=== PATIENT | female | born 1990 | race Caucasian/White ===

== ENCOUNTER 2024-02-06 11:15 | Outpatient (AMB) | payer OTHER, SELFPAY ==
[2024-02-06 11:27] VITALS: BP 112/60; PULSE 80; O2SAT 95; BMI 41.7
--- NOTE | 2024-02-06 11:27 | A.OFFPC_ITS ---
Vital Signs 02/06/24 11:27 Height 5 ft 7 in Weight 266 lb BMI 41.7 BP 112/60 Blood Pressure Location Lt brachial Position Sitting Pulse 80 Pulse Source Pulse Oximeter Pulse Oximetry (%) 95 Oxygen Delivery Method Room Air Intake Visit Reasons: Back Pain Consumer Product Advisor: Not Required per policy Accompanied by: Self / Same As Patient Allergies No Known Allergies [No Known Allergies*] Allergy (Verified 02/06/24 12:01) Medication List - Last Reconciled 02/06/24 by Ronnie Byers MD albuterol sulfate 90 mcg/actuation 2 puffs inhalation Q6H PRN 30 days ibuprofen 600 mg PO Q6H PRN 30 days loratadine 10 mg PO DAILY PRN methocarbamol 500 mg PO TID PRN 10 days tramadol 50 mg PO TID PRN 10 days Tobacco use date assessed: 02/06/24 Dental Screening Dental Screen Date: 02/06/24 Did you have a dental visit in the last 12 months?: No Did you have a dental problem in the last 6 months where you did not have access to dental care?: No Was dental information given to patient?: Patient has dentist HPI Back Pain HPI Details Patient comes in today for her follow up visit - was last seen here in July 2021 (via telehealth); was last here in-person in October 2020 Patient states that she has been experiencing increased allergy symptoms lately She has been taking OTC Benadryl or Claritin recently with some relief of her symptoms States that her current job requires her to go up and down stairs throughout the day and this is aggravating her low back pain Needs several of her Rx refilled, including her Tramadol She denies any fever or sore throat; denies any headaches or dizziness Denies any chest pain, no shortness of breath - states that her asthma has been well controlled lately No nausea /vomiting, no abdominal pain No change in bowel habits noted Adds that she has some itchy Athlete foot lesions/rash on both feet and is looking for some Rx to help clear these up [facility] Medical History (Updated 02/09/24 @ 03:39 by Ronnie Byers MD) Morbid obesity with BMI of 40.0-44.9, adult Obesity (BMI 30-39.9) Protrusion of intervertebral disc of lumbosacral region Lumbar spondylosis Congenital blindness Allergic rhinitis Asthma Surgical History H/O cardiac radiofrequency ablation Family History Father No problems noted. Mother Diabetes Social History Housing: Apartment Alcohol intake: current Alcohol intake frequency: holidays/special occasions only Patient Tobacco Use Status: Former Tobacco user Second Hand Smoke Exposure: Yes service: No Current occupational status: employed Questionnaire PHQ-9 Over the last 2 weeks, how often have you been bothered by any of the following problems? 1. Little interest or pleasure in doing things: not at all 2. Feeling down, depressed, or hopeless: not at all 3. Trouble falling or staying asleep, or sleeping too much: not at all 4. Feeling tired or having little energy: not at all 5. Poor appetite or overeating: not at all 6. Feeling bad about yourself - or that you are a failure or have let yourself or your family down: not at all 7. Trouble concentrating on things, such as reading the newspaper or watching television: not at all 8. Moving or speaking so slowly that other people could have noticed. Or the opposite - being so fidgety or restless that you have been moving around a lot more than usual: not at all 9. Thoughts that you would be better off or of hurting yourself in some way: not at all Total score: 0 Depression Screening Interpretation: Negative Depression Screening Done: Yes 17436 - PHQ-9 Billing: Yes Source: Developed by Drs. Boyd Gray, Shonna Chen, Corky Hyde and colleagues, with an educational nawaf from [employer]. Thrive Questionnaire Date Thrive assessed: 02/06/24 I am a: Patient What is your living situation today?: I have a steady place to live Within the past 12 months, did the food you bought not last and you didn't have the money to get more?: Never true Within the past 12 months, did you worry whether your food would run out before you got money to buy more?: Never true Do you have trouble paying for medicines?: No Do you have trouble getting transportation to medical appointments?: No Do you have trouble paying your heating and electricity bill?: No Do you have trouble taking care of your child, family member or friend?: No Do you have trouble with day-to-day activities such as bathing, preparing meals, shopping, managing finances, etc.?: No Are you currently unemployed and looking for a job?: No Are you interested in more education?: No Please select the resources that you would like help with: None Currently or been in a relationship where the following occur: No concerns reported THRIVE Score: 0 AUDIT C Alcohol Use Questionnaire (AUDIT-C) 1. How often do you have a drink containing alcohol?: Monthly or less 2. How many drinks containing alcohol do you have on a typical day when you are drinking?: 1 or 2 3. How often do you have six or more drinks on one occasion?: Never Total Score: 1 Score Reviewed/Action Taken: Yes LAMBERT-7 AMB Questionnaire LAMBERT-7 Date LAMBERT - 7 assessed: 02/06/24 Feeling nervous, anxious, or on edge: 3 = Nearly every day Not being able to stop or control worryin = Nearly every day Worrying too much about different things: 3 = Nearly every day Trouble relaxin = Several days Being so restless that it is hard to sit still: 3 = Nearly every day Becoming easily annoyed or irritable: 3 = Nearly every day Feeling afraid as if something awful might happen: 0 = Not at all Total LAMBERT-7 score (0-4 normal; 5-9 mild; 10-14 moderate; 15-21 severe): 16 Source: Developed by Drs. Boyd Gray, Shonna Chen, Corky Hyde and colleagues, with an educational nawaf from [employer]. Review of Systems Const Denies chills, Denies fatigue, Denies fever(s) and Denies headache(s) ENT Denies dysphagia, Denies dizziness, Denies otalgia, Denies headache(s), Denies neck pain, Denies odynophagia and Denies sore throat Card Denies chest pain, Denies palpitations and Denies dyspnea Resp Denies cough, Denies dyspnea and Denies wheezing GI Denies abdominal pain, Denies constipation, Denies dysphagia, Denies heartburn, Denies diarrhea, Denies nausea, Denies odynophagia and Denies vomiting Denies nocturia, Denies dysuria and Denies urinary urgency Musc Reports back pain (over the lumbar spine - chronic), Denies arthralgias and Denies neck pain Skin/Breast Reports rash (itchy rash in-between some toes on both feet) Neuro Denies dizziness and Denies headache(s) Endo Denies fatigue and Denies palpitations Aller/Immun Denies wheezing Physical exam (Primary Care) Vital Signs: Last Vital Signs Pulse 80 02/06/24 11:27 BP 112/60 02/06/24 11:27 Pulse Ox 95 02/06/24 11:27 Oxygen Delivery Method Room Air 02/06/24 11:27 BMI result Body Mass Index 41.7 Tobacco/Smoking Status: Tobacco use Status Tobacco use date assessed 02/06/24 02/06/24 11:28 Patient Tobacco Use Status Former Tobacco user 02/06/24 11:28 PHQ-9: PHQ-9 Score PHQ-9: Total score 0 02/08/24 04:06 Depression Screening Interpretation: Negative Thrive Assessment: Date of Thrive Assessment Date Thrive assessed 02/06/24 02/06/24 11:28 Currently or been in a relationship where the following occur: No concerns reported Const General: no acute distress and alert HENMT Ears: TM's normal bilaterally and EAC's normal Throat: Yes posterior oropharynx normal and Yes tonsils normal (no TP congestion) Neck Neck: Yes no lymphadenopathy and Yes supple Thyroid: Thyroid normal Resp Auscultation: clear to auscultation bilaterally, no rales and no wheezes Cardio Rate: regular rate Rhythm: regular rhythm Heart sounds: no murmurs GI Palpation (GI): Soft to palpation and nontender Auscultation: normal bowel sounds General: Yes no CVA tenderness Back/Spine/Pelvis Back: no CVA tenderness Thoracic/Lumbar Spine: lumbar spinal tenderness Skin Other: (+) mild erythematous, pruritic rash in between a few toes on both feet Extrem General: Yes no clubbing, cyanosis or edema Assessment and Plan Assessment & Plan (1) Asthma: Code(s): J45.909 - Unspecified asthma, uncomplicated Qualifiers: Asthma severity: mild Asthma persistence: intermittent Asthma complication type: uncomplicated Qualified Code(s): J45.20 - Mild intermittent asthma, uncomplicated Plan: Controlled Continue Albuterol HFA 2 inhalations every 6 hours as needed (2) Lumbar spondylosis: Code(s): M47.816 - Spondylosis without myelopathy or radiculopathy, lumbar region Plan: MRI of the lumbar spine done on 08/13/2016 revealed (+) left paracentral disc protrusion at L5-S1 with mild posterior displacement of the traversing left S1 nerve root; facet arthropathy and mild left foraminal narrowing and milder spondylitic changes at L3-L4 and L4-L5 Reinforced activity and weight-lifting restrictions Continue Ibuprofen 600 mg Q 6 hours PRN, Methocarbamol 500 mg TID PRN and Tramadol 50 mg TID PRN - Rx refilled (3) Allergic rhinitis: Code(s): J30.9 - Allergic rhinitis, unspecified Qualifiers: Allergic rhinitis trigger: unspecified Allergic rhinitis seasonality: unspecified Qualified Code(s): J30.9 - Allergic rhinitis, unspecified Plan: Continue Loratadine 10 mg QD PRN (4) Tinea pedis: Code(s): B35.3 - Tinea pedis Qualifiers: Laterality: bilateral Qualified Code(s): B35.3 - Tinea pedis Plan: Will start her on Miconazole nitrate 2% spray BID (5) Morbid obesity with BMI of 40.0-44.9, adult: Code(s): E66.01 - Morbid (severe) obesity due to excess calories; Z68.41 - Body mass index [BMI] 40.0-44.9, adult Plan: Reinforced diet/exercise as tolerated/lose weight Plan To return in 4 months for her annual physical examination Patient is advised to get her labs done before she returns in 4 months Orders: Orders Comprehensive [place]. Panel Fast 4 Months E78.00 - Pure hypercholesterolemia, unspecified, Z00.00 - Encounter for general adult medical examination without abnormal findings Vitamin D 25-OH Total 4 Months E55.9 - Vitamin D deficiency, unspecified, Z00.00 - Encounter for general adult medical examination without abnormal findings Complete Blood Count Auto Diff 4 Months D64.9 - Anemia, unspecified, Z00.00 - Encounter for general adult medical examination without abnormal findings Lipid Panel 4 Months E78.00 - Pure hypercholesterolemia, unspecified, Z00.00 - Encounter for general adult medical examination without abnormal findings TSH reflex Free T4 4 Months E78.00 - Pure hypercholesterolemia, unspecified, Z00.00 - Encounter for general adult medical examination without abnormal findings UA CC w/rflx Micro + Cult 4 Months R30.0 - Dysuria, Z00.00 - Encounter for general adult medical examination without abnormal findings Medications: New miconazole nitrate 2% 1 spray topical BID 133 grams 2RF Refilled tramadol 50 mg PO TID 10 days PRN 30 tabs 0RF pain methocarbamol 500 mg PO TID 10 days PRN 30 tabs 2RF muscle spasms Coding Level of Care Code Est Pt Level 4 (63787) Diagnoses Mild intermittent asthma without complication J45.20 Asthma severity: mild Asthma persistence: intermittent Asthma complication type: uncomplicated Lumbar spondylosis M47.816 Allergic rhinitis, unspecified seasonality, unspecified trigger J30.9 Allergic rhinitis trigger: unspecified Allergic rhinitis seasonality: unspecified Tinea pedis of both feet B35.3 Laterality: bilateral Morbid obesity with BMI of 40.0-44.9, adult E66.01; Z68.41
== END 2024-02-06 12:12 | disposition home or self-care (01) ==
PROVIDERS: PCP Internal Medicine; Visit Provider Internal Medicine
DX: J45.20 Mild intermittent asthma, uncomplicated (principal); E66.01 Morbid (severe) obesity due to excess calories; Z68.41 Body mass index [BMI] 40.0-44.9, adult; M47.816 Spondylosis without myelopathy or radiculopathy, lumbar region; J30.9 Allergic rhinitis, unspecified; B35.3 Tinea pedis
CPT/HCPCS: 99214

== ENCOUNTER 2024-11-01 06:49 | Emergency (ER) | payer OTHER, SELFPAY ==
[2024-11-01 06:53] VITALS: BP 111/63; PULSE 81; RESP 19; TEMP 36.6; O2SAT 98; BMI 42.3
--- OUTSIDE RECORDS SUMMARY | 2024-11-01 08:05 | XMS_ITS | Clinical Summary ---
Author Organization [facility] Address [address] [place] [address] Phone Care Team Providers Care Wood Patternmaker Name Role Phone Ronnie Byers MD Primary Care Provider [phone] Allergies No known active allergies Social History Tobacco Use Types Packs/Day Years Used Date Smoking Tobacco: Never Assessed Comments Unknown Sex and Gender Information Value Date Recorded Sex Assigned at Not on file Legal Sex Female 12:19 AM EST Gender Identity Not on file Sexual Orientation Not on file Last Filed Vital Signs Vital Sign Reading Time Taken Comments Blood Pressure 134/94 06/15/2024 1:41 PM EST Pulse 95 06/15/2024 1:41 PM EST Temperature 37.1 ??C (98.8 ??F) 06/15/2024 1:41 PM ES T Respiratory Rate 18 06/15/2024 1:41 PM EST Oxygen Saturation 96% 06/15/2024 1:41 PM EST Inhaled Oxygen Concentration - - Weight 122 kg (270 lb) 06/15/2024 1:41 PM EST Height 170.2 cm (5' 7 ) 06/15/2024 1:41 PM EST Body Mass Index 42.29 06/15/2024 1:41 PM EST Plan of Treatment Health Maintenance Due Date Last Done Comments DTaP,Tdap,and Td Vaccines (1 - Tdap) 2007 Pneumococcal Vaccine: Pediat rics (0 to 5 Years) and At-Risk Patients (6 to 64 Years) (1 of 2 - PCV) 2007 Cervical Cancer Screening: P ap Smear 2009 Depression Screening 06/06/2022 HIV Screening 06/06/2022 Hepatitis C Screening 06/06/2022 Social Influencers of Health Screening 06/06/2022 Hepatitis B Vaccines (2 of 3 - 19+ 3-dose series) 07/16/2022 06/18/2022 COVID-19 Vaccine (1 - 2023-2 5 season) 2024 Influenza Vaccine (Season Ended) 2025 06/02/20 18 HIB Vaccines Aged Out No longer eligi ble based on patient's age to complete this topic HPV Vaccines Aged Out No longer eligi ble based on patient's age to complete this topic Hepatitis A Vaccines Aged Out No long er eligible based on patient's age to complete this topic IPV Vaccines Aged Out No longer eligi ble based on patient's age to complete this topic MMR Vaccines Aged Out No longer eligi ble based on patient's age to complete this topic Meningococcal ACWY Vaccine Aged Out N o longer eligible based on patient's age to complete this topic Meningococcal B Vaccine Aged Out No l onger eligible based on patient's age to complete this topic RSV Immunization Patients Un jeff 20 months Aged Out No longer eligible b ased on patient's age to complete this topic Varicella Vaccines Aged Out No longer eligible based on patient's age to complete this topic Insurance PLAN Care Teams Wood Patternmaker Relationship Specialty Start Date End Date Ronnie Byers MD [address] [place] [address] [phone] PCP - General Internal Medicine 06/15/24
--- NOTE | 2024-11-01 09:08 | ED_ITS ---
HPI - General Adult General Chief complaint: Eye Problems Stated complaint: multi issues Time Seen by Provider: 11/01/24 09:06 Source: patient Mode of arrival: ambulatory Limitations: no limitations History of Present Illness ED Provider: ЮЛИЯ VARELA PA-C HPI narrative: 34 year old female with pmhx significant for asthma and allergic rhinitis presents to the ED today for evaluation of left eye discomfort on waking this morning. She reports waking up with FB sensation to her left eye with oily crusting and mild blurred vision. States she has been rubbing her eye his morning, causing it to become more irritated. She cannot recall getting anything in her eye yesterday. Reports history of similar in the past. She was prescribed an antibiotic ointment at that time with improvement. She does not wear contacts at baseline however reports wearing aesthetic colored contacts for prolonged periods of time. She has not worn these in 2-3 weeks. Denies any injury/trauma to the eye. Denies any significant pain to the eye. Denies vision loss. Also reports pain to the cuticle of her left thumb. Admits to biting her nails. She also works as a patient support representative. Denies injury or trauma to the finger. Denies any drainage from the finger. Denies fever, chills, nausea or vomiting, numbness/tingling/weakness of the extremity. Related Data Home Medications ?Medication ?Instructions ?Recorded ?Confirmed loratadine 10 mg tablet 10 mg PO DAILY PRN 10/14/20 02/06/24 Previous Rx's ?Medication ?Instructions ?Recorded albuterol sulfate 90 mcg/actuation 2 puff inhalation Q6H PRN 07/18/21 aerosol inhaler shortness of breath or wheezing 30 days #8.5 grams ibuprofen 600 mg tablet 600 mg PO Q6H PRN pain 30 days 07/18/21 #120 tabs miconazole nitrate 2 % topical 1 spray topical BID #133 grams 02/06/24 spray powder methocarbamol 500 mg tablet 500 mg PO TID PRN muscle spasms 10 08/28/24 days #30 tabs tramadol 50 mg tablet 50 mg PO TID PRN pain 10 days #30 08/28/24 tabs ciprofloxacin HCl 0.3 % eye 0.5 inch ophthalmic-Left QID 5 11/01/24 ointment days #3.5 grams Allergies Allergy/AdvReac Type Severity Reaction Status Date / Time No Known Allergies Allergy Verified 11/01/24 06:55 [No Known Allergies*] Review of Systems Review of Systems: Yes all other systems are reviewed and are negative [facility] Past Medical History Attestation statement: The following information was validated with the patient. Source: old records reviewed and nursing notes reviewed Medical History Morbid obesity with BMI of 40.0-44.9, adult Obesity (BMI 30-39.9) Protrusion of intervertebral disc of lumbosacral region Lumbar spondylosis Congenital blindness Allergic rhinitis Asthma Surgical History H/O cardiac radiofrequency ablation Family History Family History Father No problems noted. Mother Diabetes Social History Social History Housing: Apartment Alcohol intake: current Alcohol intake frequency: holidays/special occasions on ly Patient Tobacco Use Status: Former Tobacco user Second Hand Smoke Exposure: Yes Advance Directives: No Advance Directives Information Provided: No Do you have a plan to hurt others: No Plan service: No Current occupational status: employed Physical Exam ED Vital Signs: Vital Signs - 24 hr 11/01/24 06:53 11/01/24 09:52 Temperature 98 F 98 F Pulse Rate 81 81 Respiratory Rate 19 19 Blood Pressure 111/63 111/63 Pulse Oximetry 98 98 Oxygen Delivery Method Room Air Room Air BMI result Body Mass Index 42.3 vital signs stable General: Well appearing, in no acute distress. Skin: Warm, dry, intact. No rashes or lesions. Head: Normocephalic, atraumatic. EENT: Hearing is intact b/l. Moist mucous membranes.?+No periorbital swelling. No enophthalmous or exopthalmous. EOMs intact without pain or entrapment. PERRLA. Negative photophobia. No obvious foreign body. Mild left eye conjunctival injection. No hazy cornea. Visual acuity 20/40 OD, 20/20 OS. IOP OD 24, IOP OS 25. On tetracaine exam, small area of reuptake noted to 6 oclock. No ulceration. No dendritic lesions. Cardiac: Chest wall symmetric. RRR Lungs: Normal respiratory effort without accessory muscle use Back: No midline spinous or paraspinal tenderness. No step off deformity. Ext: +tender, erythematous indurated area at the medial nail fold of the left thumb. No drainage. No pointing. Full ROM intact to left thumb. Neuro: AOx3. Normal speech. Ambulating with steady gait. Course Course Course Narrative: Subtle corneal abrasion noted to left eye. Will treat with ciprofloxacin ointment. Ophthalmology referral provided. Paronychia noted to medial cuticle of left thumb. No palpable fluctuance or pointing. Areas indurated. No drainable collection of fluid. Advised patient to soak thumb in warm water and Epsom salt. No indication for antibiotics or I&D at this time. Medications Administered Discontinued Medications Generic Name Dose Route Start Last Admin Trade Name Freq PRN Reason Stop Dose Admin Fluorescein Sodium 1 strip 11/01/24 09:21 11/01/24 09:51 Fluorescein Sodium Strip EYE-LEFT 11/01/24 09:22 1 strip ONCE ONE Administration Tetracaine HCl 1 drop 11/01/24 09:21 11/01/24 09:51 Tetracaine Hcl/Pf 0.5% Oph Elsa 4 Ml Drops EYE-LEFT 11/01/24 09:22 1 drop ONCE ONE Administration Medical Decision Making Medical Decision Making [facility] Narrative: 34 year old female with pmhx significant for asthma and allergic rhinitis presents to the ED today for evaluation of left eye discomfort on waking this morning and left thumb pain. Vital signs stable, afebrile. She is nontoxic appearing in no acute distress. on exam of left thumb, tender, erythematous indurated area at the medial nail fold of the left thumb. No drainage. No pointing. Full ROM intact to left thumb. there is no periorbital swelling. No enophthalmous or exopthalmous. EOMs intact without pain or entrapment. PERRLA. Negative photophobia. No obvious foreign body. Mild left eye conjunctival injection. No hazy cornea. Visual acuity 20/40 OD, 20/20 OS. IOP OD 24, IOP OS 25. On tetracaine exam, small area of reuptake noted to 6 oclock. No ulceration. No dendritic lesions. Differential diagnosis includes corneal abrasion, corneal foreign body, viral vs bacterial conjunctivitis, allergic conjunctivitis. Unlikely preseptal or orbital cellulitis, acute angle closure glaucoma, iritis, keratitis, scleritis, uveitis, herpes ophthalmicus. Concern for paronychia, cellulitis. Unlikely fracture. Plan for tetracaine/fluorescein exam, visual acuity, disposition. Differential Diagnosis Differential Diagnoses: The differential diagnosis associated with the presentation includes as above. Admission/Observation Not indicated External Record Review External record reviewed: Inpatient record Prescription Management I considered prescription management with: Antibiotic (Ciprofloxacin) Social Determinants Patient?s care significantly limited by Social Determinants of Health including: Other Social Determinant of Health Critical Care Time Critical Care Time Critical Care Time: No Discharge Plan Discharge Clinical Impression: Corneal abrasion, Paronychia of finger Patient Disposition: Home, Self-Care Instructions: Paronychia (ED), Corneal Abrasion (ED) Additional Instructions: You have a small abrasion to your left cornea. Treatment for this is with antibiotics. Ciprofloxacin ointment has been sent to your pharmacy. As discussed, apply half-inch ribbon of ointment into your left eye 4 times daily x5 days. AVOID CONTACT USE UNTIL YOU HAVE COMPLETED ANTIBIOTICS AND SYMPTOMS RESOLVE. I have provided you with a referral to Ophthalmology. You may call them to establish care. They will not call you. Regarding your left thumb pain, you have a small infection of the cuticle. There is nothing to drain. As discussed, I recommend soaking the thumb in warm water and Epsom salt multiple times a day. You may apply a little bacitracin or Neosporin to the area as needed. Stop biting your nails. Return with any new or worsening symptoms. In the case of an emergency call 911. Prescriptions: New ciprofloxacin HCl 0.3 % ointment 0.5 inch ophthalmic-Left QID 5 Days Qty: 3.5 0RF Rx Instructions: Apply 1 in ribbon into left eye 4 times daily for 5 days No Action tramadol 50 mg tablet 50 mg PO TID PRN (Reason: pain) 10 Days Qty: 30 0RF methocarbamol 500 mg tablet 500 mg PO TID PRN (Reason: muscle spasms) 10 Days Qty: 30 1RF loratadine 10 mg tablet 10 mg PO DAILY PRN albuterol sulfate 90 mcg/actuation HFA aerosol inhaler 2 puff inhalation Q6H PRN (Reason: shortness of breath or wheezing) 30 Days Qty: 8.5 5RF ibuprofen 600 mg tablet 600 mg PO Q6H PRN (Reason: pain) 30 Days Qty: 120 1RF miconazole nitrate 2 % aerosol powder 1 spray topical BID Qty: 133 2RF Referrals: Ronnie Beyrs MD [Primary Care Provider] - [place] [Physician] - 3 days Interventions: ED Discharge Assessment Last Done: 11/01/24 09:52 Discharge Date/Time: 11/01/24 09:56 Print Language: Kazakh
[2024-11-01] MEDS: Tetracaine HCl/PF 0.5% Oph Sol 4 ML DROPS 1 DROP EYE-LEFT (09:51)
[2024-11-01] MEDS: Fluorescein Sodium STRIP 1 STRIP EYE-LEFT (09:51)
[2024-11-01 09:52] VITALS: BP 111/63; PULSE 81; RESP 19; TEMP 36.6; O2SAT 98
== END 2024-11-01 09:56 | disposition home or self-care (01) ==
PROVIDERS: Emergency Provider Emergency Medicine; PCP Internal Medicine
DX: L03.012 Cellulitis of left finger (principal); S05.02XA Injury of conjunctiva and corneal abrasion without foreign body, left eye, initial encounter; X58.XXXA Exposure to other specified factors, initial encounter; Y93.9 Activity, unspecified; Y92.9 Unspecified place or not applicable; Y99.9 Unspecified external cause status; H53.8 Other visual disturbances
CPT/HCPCS: 99282; 99283